=== PATIENT | female | born 1945 | race Caucasian/White ===

== ENCOUNTER → 2016-06-09 | Outpatient (CLI) | payer MEDICARE, OTHER ==
[~2016-06-09] MED LIST: ADVAIR 500/28 DISKU1 INH; CELEXA20 MG PO; CRESTOR 10MG10 MG PO; ESCITALOPRAM10 MG PO; IPRATROPIUM BROM3 M1 IH; LANTUS100 U/ML SQ; LASIX40 MG PO; LEXAPRO10 MG PO; MOBIC15 MG PO; NIZATIDINE150 MG PO; NOVOLOG 100U100 U/M1 SQ; PEPCID 20MG TAB20 MG PO; PEPCID20 M1 PO; PREDNISONE20 MG PO; PRILOSEC 20MG20 MG PO; PROVENTIL0.09 MG/Ac INH; VIBRAMYCIN100 MG PO; XANAX .25M0.25 MG/TA PO; ZESTRIL10 MG PO
== END ==
LOC: LAB 09:08
DX: N18.3 Chronic kidney disease, stage 3 (moderate) (principal); E10.9 Type 1 diabetes mellitus without complications; R80.9 Proteinuria, unspecified

== ENCOUNTER → 2016-10-19 | Outpatient (CLI) | payer MEDICARE, OTHER ==
[2014-11-13 12:35] VITALS: BP 146/83
== END ==
LOC: LAB 09:14
DX: E11.9 Type 2 diabetes mellitus without complications (principal); N18.4 Chronic kidney disease, stage 4 (severe); R80.9 Proteinuria, unspecified

== ENCOUNTER → 2016-12-15 | Outpatient (CLI) | payer MEDICARE, OTHER ==
[2014-11-13 12:35] VITALS: BP 146/83
== END ==
LOC: LAB 14:59
DX: L02.31 Cutaneous abscess of buttock (principal)

== ENCOUNTER → 2017-06-16 | Outpatient (CLI) | payer MEDICARE, OTHER ==
[2014-11-13 12:35] VITALS: BP 146/83
[2017-06-16 20:18] LABS: EOS # 0.2 (0.04-0.40); EOS % 2.9 % (1.0-5.0); HEMATOCRIT 34.5 % (37.0-47.0); HEMOGLOBIN 10.4 g/dL (12.5-16.0); LYMPH# 2.6 (1.50-4.00); MEAN CELL VOLUME 97 fl (78-100); MEAN CORPUSCULAR HEMOGLOBIN 29 pg (27-31); MEAN CORPUSCULAR HGB CONC 30 g/dL (33-37); MEAN PLATELET VOLUME 10.9 fl (7.4-10.4); MONO # 0.8 (0.20-0.80); PLATELET COUNT 208 K/mm3 (130-400); RED BLOOD COUNT 3.57 M/mm3 (4.10-5.30); RED CELL DISTRIBUTION WIDTH 13.2 % (11.5-14.5); WHITE BLOOD COUNT 7.7 K/mm3 (4.8-10.8)
[2017-06-16 20:24] LABS: ALBUMIN 3.3 g/dL (3.5-5.0); BUN/CREATININE RATIO 13.8 (6.0-26.0); CALCIUM 9.1 mg/dL (8.4-10.2); POTASSIUM 4.6 mmol/L (3.6-5.0); TOTAL BILIRUBIN 0.2 mg/dL (0.2-1.3); TOTAL PROTEIN 6.1 g/dL (6.3-8.2)
[2017-06-16 20:35] LABS: URINE APPEARANCE CLOUDY; URINE BILIRUBIN NEGATIVE (NEGATIVE); URINE BLOOD 250 ery/uL (NEGATIVE); URINE COLOR YELLOW; URINE GLUCOSE NEGATIVE (NEGATIVE); URINE KETONE NEGATIVE (NEGATIVE); URINE LEUKOCYTE ESTERASE TRACE (NEGATIVE); URINE NITRATE NEGATIVE (NEGATIVE); URINE PROTEIN(semi-quant) 3+ mg/dL (NEGATIVE); URINE UROBILINOGEN NORMAL (NORMAL)
[2017-06-16 20:36] LABS: URINE WBC 16-30 /hpf (0-3)
== END ==
LOC: LAB 18:08
PROVIDERS: Family Medicine
DX: F99 Mental disorder, not otherwise specified (principal)

== ENCOUNTER 2017-06-24 11:47 | Emergency (ER) | payer MEDICARE, OTHER ==
[~2017-06-24] VITALS: Wt 79.1 kg
[~2017-06-24 11:47] MED LIST changes: +ZESTRIL10 M1 PO; -ZESTRIL10 MG PO
[2017-06-24] MEDS ORDERED: ADVAIR DISKUS1 DS1 IH (12:10)
[2017-06-24] MEDS ORDERED: KLONOPIN 1MG1 MG PO (12:11)
[2017-06-24] MEDS ORDERED: LANTUS PEN100 U/ML SQ (12:12)
[2017-06-24] MEDS ORDERED: INSULIN HUMA100 U/ML SQ (12:12)
[2017-06-24] MEDS ORDERED: CIPRO250 M1 PO (12:14)
[2017-06-24] MEDS ORDERED: GLYCOLAX17 GM/DOSE PO (12:15)
[2017-06-24] MEDS ORDERED: PERCOCET 325 MG1 TAB PO (12:22)
[2017-06-24] MEDS ORDERED: NORCO 10-325 T1 EACH PO (12:23)
[2017-06-24 12:32] LABS: EOS # 0.2 (0.04-0.40); EOS % 2.3 % (1.0-5.0); HEMATOCRIT 34.9 % (37.0-47.0); HEMOGLOBIN 10.5 g/dL (12.5-16.0); LYMPH# 2.2 (1.50-4.00); MEAN CELL VOLUME 95 fl (78-100); MEAN CORPUSCULAR HEMOGLOBIN 29 pg (27-31); MEAN CORPUSCULAR HGB CONC 30 g/dL (33-37); MEAN PLATELET VOLUME 9.9 fl (7.4-10.4); MONO # 0.7 (0.20-0.80); PLATELET COUNT 181 K/mm3 (130-400); RED BLOOD COUNT 3.67 M/mm3 (4.10-5.30); RED CELL DISTRIBUTION WIDTH 13.4 % (11.5-14.5); WHITE BLOOD COUNT 7.1 K/mm3 (4.8-10.8)
[2017-06-24 12:39] LABS: ALBUMIN 3.5 g/dL (3.5-5.0); BUN/CREATININE RATIO 10.3 (6.0-26.0); POTASSIUM 4.4 mmol/L (3.6-5.0); TOTAL BILIRUBIN 0.4 mg/dL (0.2-1.3); TOTAL PROTEIN 6.8 g/dL (6.3-8.2)
[2017-06-24 12:39] LABS: URINE APPEARANCE CLEAR; URINE COLOR YELLOW
[2017-06-24 12:40] LABS: URINE BILIRUBIN NEGATIVE (NEGATIVE); URINE BLOOD 250 ery/uL (NEGATIVE); URINE GLUCOSE NEGATIVE (NEGATIVE); URINE KETONE NEGATIVE (NEGATIVE); URINE LEUKOCYTE ESTERASE NEGATIVE (NEGATIVE); URINE NITRATE NEGATIVE (NEGATIVE); URINE PROTEIN(semi-quant) 3+ mg/dL (NEGATIVE); URINE UROBILINOGEN NORMAL (NORMAL); URINE WBC 16-30 /hpf (0-3)
[2017-06-24 17:27] VITALS: BP 168/77
== END 2017-06-24 16:42 ==
LOC: ED 11:47
PROVIDERS: Nurse Practitioner Family
DX: I63.9 Cerebral infarction, unspecified (principal); Z86.73 Personal history of transient ischemic attack (TIA), and cerebral infarction without residual deficits; N39.0 Urinary tract infection, site not specified; Z51.5 Encounter for palliative care; E66.9 Obesity, unspecified; K21.9 Gastro-esophageal reflux disease without esophagitis; E78.5 Hyperlipidemia, unspecified; F32.9 Major depressive disorder, single episode, unspecified; E11.22 Type 2 diabetes mellitus with diabetic chronic kidney disease; N18.9 Chronic kidney disease, unspecified; Z91.81 History of falling; Z79.4 Long term (current) use of insulin; Z85.3 Personal history of malignant neoplasm of breast; Z85.51 Personal history of malignant neoplasm of bladder; Z87.891 Personal history of nicotine dependence; E11.40 Type 2 diabetes mellitus with diabetic neuropathy, unspecified; F41.9 Anxiety disorder, unspecified; Z88.8 Allergy status to other drugs, medicaments and biological substances
CPT/HCPCS: A4353; J0744; J7030

== ENCOUNTER → 2017-07-06 | Outpatient (CLI) | payer MEDICARE, OTHER ==
[2017-06-24 17:27] VITALS: BP 168/77
[~2017-07-06] MED LIST changes: +ADVAIR DISKUS1 DS1 IH; +CIPRO250 M1 PO; +GLYCOLAX17 GM/DOSE PO; +INSULIN HUMA100 U/ML SQ; +KLONOPIN 1MG1 MG PO; +LANTUS PEN100 U/ML SQ; +NORCO 10-325 T1 EACH PO; +PERCOCET 325 MG1 TAB PO
[2017-07-06 17:09] LABS: URINE APPEARANCE BLOODY; URINE COLOR PINKISH-YELLOW; URINE PROTEIN(semi-quant) 3+ mg/dL (NEGATIVE)
[2017-07-06 17:10] LABS: URINE BILIRUBIN NEGATIVE (NEGATIVE); URINE BLOOD 250 ery/uL (NEGATIVE); URINE KETONE NEGATIVE (NEGATIVE); URINE NITRATE NEGATIVE (NEGATIVE); URINE UROBILINOGEN NORMAL (NORMAL)
[2017-07-06 17:13] LABS: URINE LEUKOCYTE ESTERASE TRACE (NEGATIVE); URINE WBC 16-30 /hpf (0-3)
== END ==
LOC: LAB 16:18
PROVIDERS: Internal Medicine
DX: N39.0 Urinary tract infection, site not specified (principal); R41.82 Altered mental status, unspecified; Z88.8 Allergy status to other drugs, medicaments and biological substances

== ENCOUNTER → 2017-10-06 | Outpatient (CLI) | payer MEDICARE, OTHER ==
[2017-10-06 15:04] LABS: URINE APPEARANCE BLOODY; URINE COLOR RED; URINE PROTEIN(semi-quant) 3+ mg/dL (NEGATIVE)
[2017-10-06 15:05] LABS: URINE BILIRUBIN NEGATIVE (NEGATIVE); URINE BLOOD 250 ery/uL (NEGATIVE); URINE GLUCOSE NEGATIVE (NEGATIVE); URINE KETONE NEGATIVE (NEGATIVE); URINE LEUKOCYTE ESTERASE TRACE (NEGATIVE); URINE NITRATE NEGATIVE (NEGATIVE); URINE UROBILINOGEN NORMAL (NORMAL)
== END ==
LOC: LAB 14:19
PROVIDERS: Internal Medicine
DX: N39.0 Urinary tract infection, site not specified (principal); R41.82 Altered mental status, unspecified

== ENCOUNTER → 2017-11-02 | Outpatient (CLI) | payer MEDICARE, OTHER ==
[2017-11-02 14:16] LABS: URINE APPEARANCE BLOODY; URINE BILIRUBIN NEGATIVE (NEGATIVE); URINE COLOR RED; URINE GLUCOSE NEGATIVE (NEGATIVE); URINE KETONE NEGATIVE (NEGATIVE); URINE NITRATE NEGATIVE (NEGATIVE); URINE PROTEIN(semi-quant) 3+ mg/dL (NEGATIVE); URINE UROBILINOGEN NORMAL (NORMAL)
[2017-11-02 14:17] LABS: URINE BLOOD 250 ery/uL (NEGATIVE); URINE LEUKOCYTE ESTERASE TRACE (NEGATIVE); URINE WBC >50 /hpf (0-3)
== END ==
LOC: LAB 12:59
PROVIDERS: Internal Medicine
DX: F99 Mental disorder, not otherwise specified (principal); N39.0 Urinary tract infection, site not specified

== ENCOUNTER 2017-11-08 03:59 | Emergency (ER) | payer MEDICARE, OTHER ==
[2017-11-08] MEDS ORDERED: TYLENOL 325MG325 MG PO (04:51)
[2017-11-08] MEDS ORDERED: XANAX0.5 M1 PO (04:51)
[2017-11-08] MEDS ORDERED: CIPRO500 M1 PO (04:52)
[2017-11-08] MEDS ORDERED: FLONASE ALLERG9.9 ML NAS (04:55)
[2017-11-08] MEDS ORDERED: FLOVENT HFA12 G1 IH ×2 (04:55)
[2017-11-08] MEDS ORDERED: INSULIN HUMA100 U/ML SQ (04:59)
[2017-11-08] MEDS ORDERED: IPRATROPIUM BROM3 M1 IH (05:00)
[2017-11-08] MEDS ORDERED: LASIX40 M1 PO (05:01)
[2017-11-08] MEDS ORDERED: GOOD NEIGH1200 MG/15 PO (05:03)
[2017-11-08] MEDS ORDERED: MONISTAT 11 EACH VG (05:04)
[2017-11-08] MEDS ORDERED: ZESTRIL10 M1 PO (05:07)
[2017-11-08] MEDS ORDERED: GOOD NEIGH15 MG/5 M1 PO (05:07)
[2017-11-08] MEDS ORDERED: ZOFRAN 8MG8 MG PO (05:08)
[2017-11-08 08:54] VITALS: BP 132/59
== END 2017-11-08 09:29 | disposition hospice, home (50) ==
LOC: ED 03:59
DX: R09.02 Hypoxemia (principal); C67.9 Malignant neoplasm of bladder, unspecified; Z85.3 Personal history of malignant neoplasm of breast; G93.40 Encephalopathy, unspecified; E11.9 Type 2 diabetes mellitus without complications; J44.9 Chronic obstructive pulmonary disease, unspecified; Z51.5 Encounter for palliative care; Z79.4 Long term (current) use of insulin; Z85.528 Personal history of other malignant neoplasm of kidney; Z99.81 Dependence on supplemental oxygen